=== PATIENT | female | born 1995 | race Caucasian/White ===

== ENCOUNTER 2017-03-19 12:27 | Emergency (ER) | payer OTHER ==
[~2017-03-19] VITALS: Ht 152.4 cm; Wt 49.3 kg
[~2017-03-19 12:27] MED LIST: BCPILLS PO
[2017-03-19 12:38] VITALS: TEMP 36.4; Ht 152.4 cm; Wt 49.3 kg
[2017-03-19 13:09] LABS: URINE APPEARANCE CLEAR (CLEAR); URINE BILIRUBIN NEG (NEG); URINE COLOR YELLOW; URINE EPITHELIAL CELL AUTO >30 /lpf (0-5); URINE NITRITE NEG (NEG); URINE PH 7.5 (4.5-7.5); URINE SPECIFIC GRAVITY 1.011 (1.000-1.030); UROBILINOGEN NEG (NEG); ZZUR CULT IF INDIC CLEAN CATCH NO
[2017-03-19 13:15] LABS: MANUAL MICROSCOPIC REQUIRED? NO; REVIEW REQ? NO
--- NOTE | 2017-03-19 13:30 | EMERGENCY ROOM VISIT NOTE ---
ED Visit Note First contact with patient: 12:47 CHIEF COMPLAINT: Frequent and painful urination HISTORY OF PRESENT ILLNESS: This 21-year-old female presents the ER with chief complaint of urinary frequency and dysuria. The patient states that she also saw a small amount of blood on her toilet paper yesterday on one occasion. She passes very small volumes of urine with each episode of voiding. She denies back pain, fever, or vaginal discharge. The patient denies any history of kidney stones. The patient denies any abdominal pain. REVIEW OF SYSTEMS: 6 system review was performed and was negative unless stated otherwise in history of present illness. PMH: The patient is healthy; there is no significant medical or surgical history. SOCIAL HISTORY: Patient lives with her mother. The patient denies any tobacco or alcohol use. PHYSICAL EXAM: Vital Signs: Were reviewed Reviewed Nurse's notes. GEN.: 21-year -old female appears in no acute distress. MENTAL Status: Alert and oriented 3. LUNGS: Clear to auscultation without wheezes rales or rhonchi. CARDIAC: Regular rate and rhythm without murmur. BACK: No CVA tenderness noted. ABDOMEN : Positive bowel sounds all 4 quadrants. Soft, nontender to palpation without organomegaly or masses. EMERGENCY DEPARTMENT COURSE: Urine dip was negative. Urinalysis revealed just a trace of leukocytes. This will be sent for culture. The patient was informed of the findings and discharged home in stable condition. DIAGNOSIS: Dysuria DISCHARGE INSTRUCTIONS & TREATMENT: Push fluids. If you do not hear from us call in 36 hours for urine culture results. If symptoms worsen in the interim, follow-up with your family doctor. Problem List Medical Problems: (1) Hematuria Status: Resolved (2) No significant past medical history Status: Resolved (3) UTI (urinary tract infection) Status: Resolved Current/Historical Medications Scheduled Control Pills ( Control Pills), 1 TAB PO DAILY Allergies Coded Allergies: No Known Allergies (Unverified , 08/23/16) Vital Signs Date Time Temp Pulse Resp B/P (MAP) Pulse Ox O2 Delivery O2 Flow Rate FiO2 03/19/17 12:38 36.4 65 16 112/75 100 Room Air Laboratory Results Test 03/19/17 12:45 Urine Color YELLOW Urine Appearance CLEAR (CLEAR) Urine pH 7.5 (4.5-7.5) Urine Specific [place] 1.011 (1.000-1.030) Urine Protein NEG (NEG) Urine Glucose (UA) NEG (NEG) Urine Ketones NEG (NEG) Urine Occult Blood NEG (NEG) Urine Nitrite NEG (NEG) Urine Bilirubin NEG (NEG) Urine Urobilinogen NEG (NEG) Urine Leukocyte Esterase TRACE (NEG) Urine WBC (Auto) 5-10 /hpf (0-5) Urine RBC (Auto) 0-4 /hpf (0-4) Urine Hyaline Casts (Auto) 0 /lpf (0-5) Urine Epithelial Cells (Auto) >30 /lpf (0-5) Urine Bacteria (Auto) NEG (NEG) Departure Information Referrals No Doctor, Assigned (PCP) Patient Instructions My [facility]
[2017-03-19 13:40] VITALS: BP 109/71; PULSE 69; O2SAT 99
== END 2017-03-19 13:41 | disposition home or self-care (01) ==
LOC: C.EDB 12:30 → C.EDD 13:41
DX: R30.0 Dysuria (principal); Z79.3 Long term (current) use of hormonal contraceptives

== ENCOUNTER 2018-01-28 18:18 | Emergency (ER) | payer OTHER ==
[~2018-01-28] VITALS: Ht 152.4 cm; Wt 46.1 kg
[2018-01-28 18:23] VITALS: BP 117/81; PULSE 82; TEMP 37; O2SAT 99; Ht 152.4 cm; Wt 46.1 kg
[2018-01-28] MEDS ORDERED: POLYSOL3 OP (18:42)
--- NOTE | 2018-01-28 18:48 | EMERGENCY ROOM VISIT NOTE ---
ED Visit Note First contact with patient: 18:26 CHIEF COMPLAINT: Mucous from bilateral eyes HISTORY OF PRESENT ILLNESS: This 22-year-old female presents to the emergency department, ambulatory, complaining of drainage from both eyes which has been increasing throughout the day. The patient denies any redness. She states they are itchy and watery. She does describe the drainage as yellow, but states it is relatively mild. Mild constant pain, dull in nature, which is rated as 2/10. There is yellow discharge from the bilateral eyes, but the lids have not crusted shut. No difficulty with vision. The patient does not wear contacts. There is no known trauma to the eye. The patient has has recently had any other upper respiratory symptoms and does suffer from seasonal allergies. She states she is beginning to feel better from her viral upper respiratory infection, but is still noticing some congestion, sore throat, and runny nose associated with allergic rhinitis. The patient does does not have a foreign body sensation. No headache, rash, nausea or vomiting. REVIEW OF SYSTEMS: A 6 system review of systems was completed with positives and pertinent negatives in the HPI. ALLERGIES: None MEDICATIONS: OCPs, Flonase PMH: Allergic rhinitis SOCIAL HISTORY: The patient lives locally is a [employer] student. She denies drug, alcohol, tobacco use. PHYSICAL EXAM: Vital Signs: Reviewed Nurse's notes, Temperature 37.0. GENERAL: This is a 22-year-old female, in no acute distress, well-developed, well- nourished. SKIN: Warm, dry. No cyanosis. No petechia. EYES: Both pupils are equal round and reactive to light and accommodation, EOMs intact. There is mild yellow-alin discharge in the bilateral eyes, but no injection. There is no foreign body of the eyelid with lid eversion. Funduscopic exam reveals no hemorrhages, papilledema, or other abnormalities. No foreign body on the cornea , no hyphema. Visual Acuity is 20/20 right and 20/30 left without correction. EMERGENCY DEPARTMENT COURSE: I examined the patient. An ophthalmologic exam was performed with ophthalmoscope and is as described above. The patient's symptoms are more consistent with a viral versus allergic conjunctivitis. Because of the recent onset of symptoms and inability to know how this will progress, the patient will be provided with a prescription for antibiotic eyedrops to be used in the case of significantly worsening symptoms, copious purulent drainage, or redness. The patient was agreeable, and states she has had bacterial conjunctivitis in the past. All questions were answered to the patient's satisfaction. Discharge instructions reviewed, the patient was discharged home in good condition. I attest that I have personally reviewed the patient's current medication list. Patient was found to have normal blood pressure on screening and does not require follow-up. Etiologies such as conjunctivitis, corneal abrasion, uveitis, glaucoma, periorbital cellulitis, orbital cellulitis, abscess, trauma, as well as others were entertained. DIAGNOSIS: Acute conjunctivitis The chart was completed utilizing Tier 3 voice recognition software. Grammatical errors, random word insertions, pronoun errors, and incomplete sentences are an occasional consequence of this system due to software limitations, ambient noise, and hardware issues. Any formal questions or concerns about the content, text, or information contained within the body of this dictation should be directly addressed to the provider for clarification. Problem List Medical Problems: (1) Hematuria Status: Resolved (2) No significant past medical history Status: Resolved (3) UTI (urinary tract infection) Status: Resolved Current/Historical Medications Scheduled Control Pills ( Control Pills), 1 TAB PO DAILY Polymyxin B-Trimethoprim (Polytrim Oph Makeda), 1 DROPS OP Q3-4H Allergies Coded Allergies: No Known Allergies (Unverified , 08/23/16) Vital Signs Date Time Temp Pulse Resp B/P (MAP) Pulse Ox O2 Delivery O2 Flow Rate FiO2 01/28/18 19:02 16 01/28/18 18:23 37.0 82 20 117/81 99 Room Air Departure Information Impression Primary Impression: Conjunctivitis of both eyes Dispostion Home / Self-Care Condition GOOD Prescriptions Polymyxin B-Trimethoprim (POLYTRIM OPH MAKEDA) 1 Makeda Makeda 1 DROPS OP Q3-4H for 7 Days, #10 ML Prov: Belinda Cortez, RICHIE 01/28/18 Referrals No Doctor, Assigned (PCP) Patient Instructions ED Conjunctivitis Nonspecific, My [facility] Additional Instructions You were seen in the emergency department today for bilateral eye irritation and drainage. As discussed, I suspect an allergic versus viral conjunctivitis, as this does not appear bacterial in nature. There is limited redness and drainage is not severe. Use artificial tears and consider OTC antihistamine drops such as Zaditor for your symptoms. You may consider using OTC allergy medication such as Kasey, Claritin, or Zyrtec to help with symptomatic relief. Use the antibiotic drops if symptoms significantly worsen or you wake up with copious purulent drainage, significant redness, or significantly worsening pain. Avoid touching the eyes then touching other objects or people. Wash your hands frequently. Follow-up with S or return for worsening symptoms. Problem Qualifiers Primary Impression: Conjunctivitis of both eyes Conjunctivitis type: acute Acute conjunctivitis type: unspecified Qualified Codes: H10.33 - Unspecified acute conjunctivitis, bilateral
== END 2018-01-28 18:55 | disposition home or self-care (01) ==
LOC: C.EDB 18:19 → C.EDD 18:55
DX: H10.33 Unspecified acute conjunctivitis, bilateral (principal); Z86.69 Personal history of other diseases of the nervous system and sense organs; J30.9 Allergic rhinitis, unspecified